=== PATIENT | male | born 1960 | race Caucasian/White ===

== ENCOUNTER 2024-07-02 07:48 | Day surgery (SDC) | payer BC ==
[~2024-07-02 07:48] MED LIST: HYDROmorphone 0.5 MG/0.5 ML Syringe IVPUSH PRN; Ondansetron 4 MG/2 ML SDV IVPUSH PRN; Sodium Chloride 0.9% 10 ML Syringe FLUSH PRN; Sodium Chloride 0.9% 10 ML Syringe FLUSH SCH; fentaNYL 100 MCG/2 ML SDV IVPUSH PRN
[2024-07-02] MEDS ORDERED: Lidocaine 1% 4 ML ONE (08:06)
[2024-07-02] MEDS ORDERED: Midazolam 1 MG/ML 2 ML SDV ONE (08:06)
[2024-07-02] MEDS ORDERED: fentaNYL 100 MCG/2 ML SDV ONE (08:06)
[2024-07-02] MEDS ORDERED: Propofol 200 MG/20 ML SDV ONE (08:06)
[2024-07-02] MEDS: Lactated Ringers 1,000 ML IV SCH (08:15)
[2024-07-02 10:58] VITALS: BP 137/56; PULSE 52
== END 2024-07-02 10:00 | disposition home or self-care (01) ==
LOC: JD.SDS 07:48
PROVIDERS: ATTEND Surgery
DX: Z12.11 Encounter for screening for malignant neoplasm of colon (principal); I10 Essential (primary) hypertension; E66.9 Obesity, unspecified; E10.9 Type 1 diabetes mellitus without complications; Z68.32 Body mass index [BMI] 32.0-32.9, adult; Z88.8 Allergy status to other drugs, medicaments and biological substances; Z79.82 Long term (current) use of aspirin; Z79.84 Long term (current) use of oral hypoglycemic drugs; Z79.899 Other long term (current) drug therapy
CPT/HCPCS: 45378; J2250; J2704; J3010; J7120; J3490